=== PATIENT | male | born 1995 | race Caucasian/White ===

== ENCOUNTER 2018-06-19 18:06 | Observation (INO) ==
--- NOTE | 2018-06-19 18:17 | Emergency Department Note ---
Disposition Clinical Impression: Appendicitis Disposition: Admitted As Inpatient Condition: Fair General Adult HPI - General Chief complaint: ED Abdominal Pain Stated complaint: appy sent from [place] Time Seen by Provider: 06/19/18 18:09 - Related Data Home Medications Medication Instructions Recorded Confirmed Dextroamphetamine/Amphetamine 30 mg PO QAM 06/19/18 06/19/18 [Adderall Xr 30 mg Capsule] Allergies Allergy/AdvReac Type Severity Reaction Status Date / Time No Known Allergies Allergy Verified 06/19/18 18:22 Course Vital Signs Temperature 98.4 F 06/19/18 18:11 Pulse Rate 62 06/19/18 18:11 Respiratory Rate 16 06/19/18 18:11 Blood Pressure 142/91 06/19/18 18:11 O2 Sat by Pulse Oximetry 99 06/19/18 18:11 Temperature 98.4 F 06/19/18 18:11 Pulse Rate 62 06/19/18 18:11 Respiratory Rate 16 06/19/18 18:11 Blood Pressure 142/91 06/19/18 18:11 O2 Sat by Pulse Oximetry 99 06/19/18 18:11 Oxygen Delivery Oxygen Delivery Room Air Medical Decision Making - Lab Data Result diagrams: 06/19/18 19:00 06/19/18 19:00 Lab Results 06/19/18 06/19/18 06/19/18 Range/Units 19:00 19:00 19:00 WBC 13.1 H (4.3-11.1) K/mcL RBC 5.17 (4.19-5.50) M/mcL Hgb 15.2 (12.9-16.9) g/dL Hct 45.7 (37.5-50.1) % MCV 88.4 (83.0-100.0) fL MCH 29.4 (28.0-33.3) pg MCHC 33.3 (31.6-35.5) g/dL RDW 12.4 (11.5-14.5) % Plt Count 265 (140-400) K/mcL MPV 10.6 (9.4-12.4) fL Immature Gran % 0.3 (0-4) % Seg Neutrophils % 64.8 % Lymphocytes % 25.4 % Monocytes % 7.7 % Eosinophils % 1.5 % Basophils % 0.3 % Neutrophils # 8.5 (1.6-8.9) K/mcL Lymphocytes # 3.3 (0.6-4.6) K/mcL Monocytes # 1.0 (0.0-1.3) K/mcL Eosinophils # 0.2 (0.0-0.6) K/mcL Basophils # 0.0 (0.0-0.2) K/mcL PT 11.9 (9.4-12.1) Seconds INR 1.1 APTT 30.4 (26.0-36.0) Seconds Sodium 136 (136-145) mEq/L Potassium 4.2 (3.5-5.1) mEq/L Chloride 101 (98-107) mEq/L Carbon Dioxide 30 H (23-29) mEq/L BUN 10 (6-20) mg/dL Creatinine 0.91 (0.70-1.30) mg/dL Est GFR ( Amer) > 60 (> 60) Est GFR (Non-Af Amer) > 60 (> 60) BUN/Creatinine Ratio 11 (6-26) Glucose 91 (70-105) mg/dL Calculated Osmolality 281 (280-300) Calcium 9.2 (8.6-10.3) mg/dL Attestation Statement - Attestation Attestation: I examined this patient and my medical decision-making was reviewed with the Resident Physician. I agree with the documented findings, disposition and treatment plan as described except to the extent set forth below. Patient presents to the ED as she complaint of appendicitis. He [place] a transfer from the [place] where he had a CT scan that showed an appendicolith and dilated fluid-filled appendix. He said lower abdominal pain since this morning. Anorexia. He is in no distress sitting up in bed on examination. Right lower quadrant tenderness with guarding. Plan. Surgical consultation. White blood cell count was 15,000 at the [place]. Patient admitted to general surgery.
--- NOTE | 2018-06-19 18:46 | Emergency Department Note ---
Disposition Clinical Impression: Appendicitis Qualifiers: Appendicitis type: acute appendicitis Acute appendicitis type: unspecified acute appendicitis type Qualified Code(s): K35.80 - Unspecified acute appendicitis Disposition: Admitted As Inpatient Condition: Fair Time of Disposition: 19:37 General Adult HPI - General Chief complaint: ED Abdominal Pain Stated complaint: appy sent from OR Time Seen by Provider: 06/19/18 18:09 Source: EMS Mode of arrival: EMS Limitations: no limitations Nursing Notes Reviewed: Yes Vital Signs Reviewed: Yes - History of Present Illness HPI Narrative: Patient is a 23-year-old male with a past medical history of chronic back pain, ADHD presents to the emergency department for evaluation concerning for appendicitis. The patient was seen at the [facility] prior to transfer. There he had a CT scan of the abdomen and pelvis was concerning for appendicitis as well as a leukocytosis. The patient states that his symptoms started approximately 6:30 AM this morning about 12 hours ago. States he woke up and he had lower abdominal pain that he describes as 8/10 burning pain has been constant throughout the day. He is also had 3 episodes of nonbloody nonbilious emesis since onset of pain. Denies any fevers, chest pain, shortness of breath, back pain, diarrhea, urinary symptoms or testicular pain. Pain Scale: 9 - Related Data Home Medications Medication Instructions Recorded Confirmed Dextroamphetamine/Amphetamine 30 mg PO QAM 06/19/18 06/19/18 [Adderall Xr 30 mg Capsule] Allergies Allergy/AdvReac Type Severity Reaction Status Date / Time No Known Allergies Allergy Verified 06/19/18 18:22 All systems ED: reviewed and negative except as stated. Review of Systems: As Per HPI Constitutional: Denies: fever, chills Cardiovascular: Denies: chest pain, palpitations, dyspnea on exertion Respiratory: Denies: cough, dyspnea Gastrointestinal: Reports: abdominal pain, nausea, vomiting. Denies: diarrhea, constipation, hematemesis, melena, hematochezia Genitourinary: Denies: dysuria, testicular pain Musculoskeletal: Denies: back pain Past Medical History - Past Medical History Attestation: Yes The following information was validated with the patient. Source: patient Medical history: Reports: no medical history Psychiatric history: Reports: ADHD - Social History Smoking Status: Current every day smoker Smokeless Tobacco Status: No Alcohol use: Reports: none Drug use: Reports: none Physical Exam CONSTITUTIONAL: Alert and oriented X3, in no apparent distress at this time HEAD: Normocephalic; atraumatic. EYES: PERRL, no scleral icterus. NOSE: The nose is normal in appearance without rhinorrhea RESP: Normal chest excursion with respiration; breath sounds clear and equal bilaterally; no wheezes, rhonchi, or rales CARD: Regular rhythm, without murmurs, rub or gallop ABD: Non-distended; tender in the RLQ with guarding, no rebound, rigidity. SKIN: Normal for age and race; warm and dry; no apparent lesions - General General appearance: alert Course Course Narrative: Patient is a 23-year-old male with a CT scan concerning for appendicitis. The impression is transferred with the patient from the OR of the CT scan of the abdomen shows a suspected appendicolith and dilated fluid-filled appendix is highly concerning for appendicitis. On exam the patient does have guarding in the right lower quadrant with palpation. The patient was also found to have a leukocytosis in the 15,000 from lab work done at the OR. Plan at this time is to consult with general surgery for further management of the patient. - Reevaluation(s) Reevaluation #1: Patient seen and evaluated by general surgery with, Dr. Andrade. States that he will take the patient to surgery tonight to remove his appendix. Nothing by mouth until that time. Time: 19:37 Vital Signs Temperature 98.4 F 06/19/18 18:11 Pulse Rate 62 06/19/18 18:11 Respiratory Rate 16 06/19/18 18:11 Blood Pressure 142/91 06/19/18 18:11 O2 Sat by Pulse Oximetry 99 06/19/18 18:11 Temperature 98.4 F 06/19/18 18:11 Pulse Rate 56 06/19/18 20:22 Respiratory Rate 16 06/19/18 22:22 Blood Pressure 116/73 06/19/18 22:22 O2 Sat by Pulse Oximetry 100 06/19/18 20:22 Oxygen Delivery Oxygen Delivery Room Air Medical Decision Making - Medical Records Medical records reviewed: Yes I reviewed the patient's medical records. - Lab Data Lab results reviewed: Yes I reviewed the patient's lab results. Result diagrams: 06/19/18 19:00 06/19/18 19:00 Lab Results 06/19/18 06/19/1806/19/18 Range/Units 19:00 19:00 19:00 WBC 13.1 H (4.3-11.1) K/mcL RBC 5.17 (4.19-5.50) M/mcL Hgb 15.2 (12.9-16.9) g/dL Hct 45.7 (37.5-50.1) % MCV 88.4 (83.0-100.0) fL MCH 29.4 (28.0-33.3) pg MCHC 33.3 (31.6-35.5) g/dL RDW 12.4 (11.5-14.5) % Plt Count 265 (140-400) K/mcL MPV 10.6 (9.4-12.4) fL Immature Gran % 0.3 (0-4) % Seg Neutrophils % 64.8 % Lymphocytes % 25.4 % Monocytes % 7.7 % Eosinophils % 1.5 % Basophils % 0.3 % Neutrophils # 8.5 (1.6-8.9) K/mcL Lymphocytes # 3.3 (0.6-4.6) K/mcL Monocytes # 1.0 (0.0-1.3) K/mcL Eosinophils # 0.2 (0.0-0.6) K/mcL Basophils # 0.0 (0.0-0.2) K/mcL PT 11.9 (9.4-12.1) Seconds INR 1.1 APTT 30.4 (26.0-36.0) Seconds Sodium 136 (136-145) mEq/L Potassium 4.2 (3.5-5.1) mEq/L Chloride 101 (98-107) mEq/L Carbon Dioxide 30 H (23-29) mEq/L BUN 10 (6-20) mg/dL Creatinine 0.91 (0.70-1.30) mg/dL Est GFR ( Amer) > 60 (> 60) Est GFR (Non-Af Amer) > 60 (> 60) BUN/Creatinine Ratio 11 (6-26) Glucose 91 (70-105) mg/dL Calculated Osmolality 281 (280-300) Calcium 9.2 (8.6-10.3) mg/dL
[2018-06-19] MEDS ORDERED: *HR* FentaNYL (PF) 100 MCG/2 ML VIAL IVP ONE (18:49)
[2018-06-19] MEDS ORDERED: Ondansetron 4 MG/2 ML VIAL IVP ONE (18:49)
--- NOTE | 2018-06-19 19:24 | General Surg History&Physical ---
Date of Encounter: 06/19/18 Time of Encounter: 19:10 Assessment and Plan (1) Acute appendicitis Current Visit: Yes Status: Acute The assessment and plan as outlined above was discussed with the patient and/or family members who expressed understanding and agreement. All questions were answered. The patient with history consistent with appendicitis. Physical examination is suggestive of intra-abdominal inflammation but does not localized right lower quadrant. CAT scan correlation demonstrates the appendix is in the pelvis and appears to be acutely inflamed. The patient also has leukocytosis. I have recommended laparoscopic appendectomy. I discussed risks and benefits with the patient understands wishes to proceed. Qualifiers: Acute appendicitis type: with localized peritonitis Appendicitis gangrene presence: unspecified whether gangrene present Appendicitis perforation presence: unspecified whether perforation present Appendicitis abscess presence: without abscess Qualified Code(s): K35.30 - Acute appendicitis with localized peritonitis, without perforation or gangrene History of Present Illness Chief complaint: Abdominal pain HPI: Mr. Lopez is a 23 year old male Who had onset of abdominal pain this morning at 6 AM. The pain was midline and slightly to the right and suprapubic. He also had. Umbilical pain and nausea. He had no vomiting. No diarrhea. Throughout the day the pain persisted. He sought evaluation in the emergency department at the [place]. A noncontrast CAT scan was performed as well as multiple cell count evaluation. He had a significant leukocytosis as well as CAT scan evidence of acute appendicitis. He was transferred to [facility] for further care and evaluation. Patient was evaluated by emergency room staff. Surgery was consult. I evaluated the patient in the emergency department. I personally interpreted the CAT scan from the [place]. The patient has a pelvic cecum with what appears to be a dilated appendix. There is significant periappendiceal fluid but no evidence of abscess. The location of the appendix blunts the physical examination findings. I have recommended laparoscopic appendectomy Past Med Surg Social Fam HX - Past Medical History Medical history: no medical history Psychiatric history: ADHD - Social History Smoking Status: Current every day smoker Smokeless Tobacco Status: No Alcohol use: none Drug use: none Medications and Allergies Dextroamphetamine/Amphetamine [Adderall Xr 30 mg Capsule] 30 mg PO QAM 06/19/18 [History] Allergy/AdvReac Type Severity Reaction Status Date / Time No Known Allergies Allergy Verified 06/19/18 18:22 Review of Systems All systems PM: The remainder of the systems were reviewed and are negative General Surgery Exam Initial Vital Signs Temp Pulse Resp BP Pulse Ox 98.4 F 62 16 142/91 99 06/19/18 18:11 06/19/18 18:11 06/19/18 18:11 06/19/18 18:11 06/19/18 18:11 - General physical appearance well developed, well nourished, no distress - ENT normal pinna, normal nares, normal mucosa, no hearing loss, no congestion - Respiratory normal expansion, normal respiratory effort, clear to percussion, clear to auscultation - Cardiovascular Cardiovascular exam: Present: RRR, 15, 16 - Abdomen Abdomen general surgery: Present: bowel sounds present, guarding, rebound (The patient has suprapubic cardia and rebound there may be some localization of the right side but this is mostly suprapubic) Abdominal Tenderness: Present: suprapubic - Neurologic Present: CN 2-12 grossly intact, normal coordination, normal sensation - Psychiatric Psychiatric general surgery: Present: appropriate, oriented to person, oriented to place, oriented to time, speech is normal, memory intact Results - Labs All other labs normal. - Imaging CT scan - abdomen: image reviewed (I personally reviewed the CAT scan of the abdomen. The patient has a pelvic cecum with what appears to be dilated appendix and periappendiceal fluid. I cannot see a discrete abscess in the area. Findings are consistent with acute appendicitis)
[2018-06-19 19:30] LABS: Basophils % 0.3 %; Eosinophils # 0.2 K/mcL (0.0-0.6); Eosinophils % 1.5 %; Hematocrit 45.7 % (37.5-50.1); Hemoglobin 15.2 g/dL (12.9-16.9); Immature Granulocytes % 0.3 % (0-4); Lymphocytes # 3.3 K/mcL (0.6-4.6); Lymphocytes % 25.4 %; Mean Corpuscular HGB Conc 33.3 g/dL (31.6-35.5); Mean Corpuscular Hemoglobin 29.4 pg (28.0-33.3); Mean Corpuscular Volume 88.4 fL (83.0-100.0); Mean Platelet Volume 10.6 fL (9.4-12.4); Monocytes % 7.7 %; Neutrophils # 8.5 K/mcL (1.6-8.9); Platelet Count 265 K/mcL (140-400); Red Blood Count 5.17 M/mcL (4.19-5.50); Red Cell Distribution Width 12.4 % (11.5-14.5); Segmented Neutrophils % 64.8 %
[2018-06-19 19:35] LABS: BUN/Creatinine Ratio 11 (6-26); Blood Urea Nitrogen 10 mg/dL (6-20); Calcium 9.2 mg/dL (8.6-10.3); Carbon Dioxide 30 mEq/L (23-29); Chloride 101 mEq/L (98-107); Glucose 91 mg/dL (70-105); Osmolality,Calculated 281 (280-300); Potassium 4.2 mEq/L (3.5-5.1); Sodium 136 mEq/L (136-145); eGFR For Non-African Americans > 60 (> 60)
[2018-06-19 19:37] LABS: INR 1.1; Prothrombin Time 11.9 Seconds (9.4-12.1)
[2018-06-19 19:40] LABS: Activated Partial Thrombo Time 30.4 Seconds (26.0-36.0)
[2018-06-19] MEDS ORDERED: Famotidine 20 MG/2 ML VIAL IVP ONE (22:15)
[2018-06-19] MEDS ORDERED: Acetaminophen IV 1,000 MG/100 ML INFUS..BTL IVPB ONE (22:16)
[2018-06-19] MEDS ORDERED: Famotidine 20 MG/2 ML VIAL ONE (22:53)
[2018-06-19] MEDS ORDERED: Ringers Solution, Lactated 1,000 ML ONE (23:02)
[2018-06-19] MEDS ORDERED: CefOXitin 1,000 MG VIAL ONE (23:19)
[2018-06-19] MEDS: Albuterol 2.5 MG/3 ML NEBULIZER IH ONE ×2 (23:22→23:30)
[2018-06-19] MEDS ORDERED: cefOXitin 2,000 MG in Water for inj. (sterile) 20 ML 20 ML IVP ONE (23:28)
--- NOTE | 2018-06-19 23:32 | Anesthesia Evaluation PreOp ---
Date of Encounter: 06/19/18 Time of Encounter: 23:30 - Past History Planned Operation: Lap Appy Cardiac History: Denies any Significant Hx Pulmonary History: Smoker OUTLET MANAGER History: Denies Any Significant HX Other Medical History: Other (ADHD) Anesthesia History: No Prior Anesthetic Complications Alcohol Use: none Drug use: none Medications and Allergies Dextroamphetamine/Amphetamine [Adderall Xr 30 mg Capsule] 30 mg PO QAM 06/19/18 [History] Allergy/AdvReac Type Severity Reaction Status Date / Time No Known Allergies Allergy Verified 06/19/18 18:22 - Meds/Allergy Pre-op Review Medications Reviewed: Yes Allergies Reviewed: Yes Beta Blockers on Current Med List: No Anesthesia Results - Labs 06/19/18 19:00 06/19/18 19:00 Anesthesia Exam O2 Sat Height 1.83 m Weight 87.09 kg O2 Sat by Pulse Oximetry 100 O2 Sat by Pulse Oximetry 99 Vital Signs Temp Pulse Resp BP Pulse Ox 98.4 F 62 16 142/91 99 06/19/18 18:11 06/19/18 18:11 06/19/18 18:11 06/19/18 18:11 06/19/18 18:11 Height: 6'0 Weight: 192 lbs NPO (# of Hours): MN Pain Scale: 1 - HEENT Pupil (Motor): Pupils equal, EOMI Mallampati: II Teeth: Normal Oral Opening: Greater than 3 - OUTLET MANAGER LOC: Oriented OUTLET MANAGER Motor: Normal RUE, Normal LUE, Normal RLE, Normal LLE, Normal Face OUTLET MANAGER Sensory: Normal: RUE, LUE, RLE, LLE, Face - Cardiac Rhythm: Regular Murmur: None JVD: No Carotid Bruit: No - Pulmonary Breath Sounds: bilateral Clear Respiratory Effort: Symmetrical Anesthesia Assess/Plan ASA Score: 2, E Modified Jf Scale for Level of Consciousness: Cooperative, oriented, and tranquil Anesthetic Plan: General Monitoring Plan: Standard Monitors Recovery Plan: PACU (Discussed GA, agrees to proceed)
[2018-06-19] MEDS ORDERED: *HR* FentaNYL (PF) 100 MCG/2 ML VIAL ONE ×2 (23:36→23:37)
[2018-06-19] MEDS ORDERED: *HR* Propofol 200 MG/20 ML VIAL IVP ONE (23:36)
[2018-06-19] MEDS ORDERED: Lidocaine -MPF 2% 2 ML VIAL ONE (23:37)
[2018-06-19] MEDS ORDERED: Ondansetron 4 MG/2 ML VIAL ONE (23:37)
[2018-06-19] MEDS ORDERED: Dexamethasone 4 MG/ML VIAL ONE (23:37)
[2018-06-19] MEDS ORDERED: CefOXitin 2,000 MG VIAL ONE (23:58)
[2018-06-20] MEDS ORDERED: *HR* FentaNYL (PF) 100 MCG/2 ML VIAL ONE (00:11)
[2018-06-20] MEDS ORDERED: Neostigmine Methylsulfate 3 MG/3 ML SYRINGE ONE ×2 (00:24→00:38)
[2018-06-20] MEDS ORDERED: Ketorolac 30 MG/ML VIAL ONE (00:25)
[2018-06-20] MEDS ORDERED: *HR* Morphine 10 MG/ML VIAL ONE (00:33)
--- NOTE | 2018-06-20 00:45 | Operative Note ---
Date of procedure: 06/20/18 Pre-op diagnosis: Acute appendicitis Post-op diagnosis: same Procedure: Laparoscopic appendectomy Anesthesia: RUSTY Surgeon: Alexei Andrade Was there an timber management assistant present: No Estimated blood loss (cc): 10 Specimen: Appendix Condition: stable Disposition: PACU Procedure in Detail: After informed consent the patient was taken to the major operating suite placed in the supine position given adequate general endotracheal anesthesia. The abdomen is prepped and draped in sterile fashion utilizing ChloraPrep and standard draping techniques. Timeout was taken and the patient is identified. Made a vertical midline incision below the umbilicus and dissected fashion. Fascia was secured with 2 stitches of 0 Vicryl. I placed a Mancia trocar in the abdomen visually. The abdomen was insufflated to 15 mmHg pressure CO2. The cecum was in the pelvis. I placed a 5 mm trocar in the left lower quadrant. I divided the adhesions between right colon and the anterior abdominal wall. The cecum was mobilized out of the pelvis. The appendix was dilated and acutely inflamed but there is no visible pus. The appendix was not perforated. The appendix was divided off the base the cecum with a gastrointestinal load on the JAYLEEN stapler. The mesial appendix had a fairly large artery. This was secured based to 10 mm clips and a vascular load on the laparoscopic stapler. This gave an excellent technical result. The appendix was recovered through the umbilical port site in a specimen bag. I replaced the port and irrigated with copious amounts of antibiotic containing solution. There is no evidence of bleeding. All staple lines were intact. All trochars were removed. Fascia was closed with 0 Vicryl. The skin was closed with 2-0 Vicryl subcutaneous layer and 4-0 Vicryl on the subcuticular layer. He tolerated the procedure well. The appendix is sent for pathologic evaluation
--- NOTE | 2018-06-20 01:22 | Anesthesia Evaluation Post Op ---
Date of Encounter: 06/20/18 Time of Encounter: 01:20 - Vital Signs Vital Signs: Vital Signs/O2 Sat/Glucose, Most Current Temp Pulse Resp BP Pulse Ox 06/20/18 01:15 98.6 F 50 20 141/83 93 06/20/18 01:05 48 20 144/85 95 06/20/18 00:55 50 20 128/70 93 06/20/18 00:45 97.8 F 67 16 125/74 99 06/19/18 22:22 16 116/73 - Lungs Lungs: Clear Ascult./Percussion - Airway Airway: Non-obstructed - Cardiovascular Regular Rate - Mental Status Mental Status: Alert & Oriented, Answers Appropriately - Pain Pain Scale: 0 - Nausea Vomiting Nausea Vomiting: Not Present - Hydration Hydration: Ice chips - Discharge PostOp Status: Transfer Patient to floor
[2018-06-20] MEDS ORDERED: *HR* OxyCODONE/APAP 5/325 TABLET PO PRN (01:47)
[2018-06-20] MEDS ORDERED: Ondansetron 4 MG/2 ML VIAL IVP PRN (01:47)
[2018-06-20] MEDS ORDERED: 0.9 % Sodium Chloride 1,000 ML IVC SCH (01:47)
[2018-06-20] MEDS ORDERED: 0.9 % Sodium Chloride 1,000 ML ONE (01:53)
[2018-06-20] MEDS: OXYCODONE Oral CONC 10 MG/0.5 ML ORAL.SYG SL PRN ×3 (03:40→13:39)
[2018-06-20] MEDS ORDERED: cefOXitin 2,000 MG in Water for inj. (sterile) 20 ML 20 ML IVP SCH (08:00)
[2018-06-20] MEDS ORDERED: ADDERALL 30 MG PO SCH (09:00)
[2018-06-20 10:42] VITALS: BP 114/68
--- NOTE | 2018-06-20 12:03 | Discharge Summary ---
<LucianoFelix Drummond - Last Filed: 06/20/18 16:42> - NOTES TO OUTPATIENT PROVIDER Notes to Outpatient Provider: Patient had laparoscopic appendectomy with no complications on 06/19 (midnight). Sent home on percocet and colace 06/20. Orders not resulted at time of discharge: Pending orders 06/20/18 00:21 Surgical Pathology [PTH] Routine Date of Encounter: 06/20/18 Time of Encounter: 08:00 - Discharge Diagnosis (1) Acute appendicitis Priority: Primary Status: Acute Qualifiers: Acute appendicitis type: with localized peritonitis Appendicitis gangrene presence: unspecified whether gangrene present Appendicitis perforation presence: unspecified whether perforation present Appendicitis abscess presence: without abscess Qualified Code(s): K35.30 - Acute appendicitis with localized peritonitis, without perforation or gangrene General Surgery Exam Initial Vital Signs Temp Pulse Resp BP Pulse Ox 98.4 F 62 16 142/91 99 06/19/18 18:11 06/19/18 18:11 06/19/18 18:11 06/19/18 18:11 06/19/18 18:11 - General physical appearance well developed, well nourished, no distress - Respiratory normal expansion, normal respiratory effort - Cardiovascular Cardiovascular exam: Present: RRR - Abdomen Abdomen general surgery: Present: bowel sounds present, soft, tender (appropriately), surgical scars - Incision Incision: Present: clean and dry, intact - Integumentary Integumentary general surgery: Present: warm and dry, no abnormal pigmentation - Psychiatric Psychiatric general surgery: Present: A&Ox3, appropriate - Hospital Course Hospital course: Mr. Lopez is a 23 year old male who presented to [place] from the [place] on 06/19 with complaints of RLQ abdominal pain. At the [place], patient complained of RLQ abdominal pain that started earlier that day. He had a leukocytosis of 14.9. CT abdomen/pelvis was concerning for appendicitis. Patient was transferred to [place] for acute appendicitis and surgical consult. Patient had a laparoscopic appendectomy by Dr. Andrade with no complications on 06/19. Patient was able to tolerate a regular diet the next day and his pain was well controlled. He was discharged with prescriptions for colace and percocet, and an appointment was made for follow-up with Lissa Hogan on 06/29/18. - Time Spent with Patient Total time spent providing and/or coordinating discharge services: Less than 30 minutes - Discharge Medications Prescriptions: RX: OxyCODONE/APAP 5/325 [Percocet 5/325 MG] 1 each PO Q6HR PRN 7 Days #20 tablet PRN Reason: Pain (1-5) Docusate Sodium [Colace] 100 mg PO BID #20 capsule Home Medications: RX: Dextroamphetamine/Amphetamine [Adderall Xr 30 mg Capsule] 30 mg PO QAM 06/19/18 [History] Docusate Sodium [Colace] 100 mg PO BID #20 capsule 06/20/18 [Rx] RX: OxyCODONE/APAP 5/325 [Percocet 5/325 MG] 1 each PO Q6HR PRN 7 Days #20 tablet 06/20/18 [Rx] Allergies/Adverse Reactions: Allergy/AdvReac Type Severity Reaction Status Date / Time No Known Allergies Allergy Verified 06/19/18 18:22 Date of admission: 06/19/18 19:45 Primary care physician: [facility] Consults: 06/19/18 18:57 Consult to Surgery [CONS] Stat Consulting Provider: Alexei Andrade Reason for Consult: Appendicitis Time Notified: 18:57 Call Completed: Yes Discharging clinician: Felix Wolf Anticipated date of discharge: 06/20/18 Labs on day of discharge: Labs from last 24 hours 06/19/18 06/19/18 06/19/18 19:00 19:00 19:00 WBC 13.1 H RBC 5.17 Hgb 15.2 Hct 45.7 MCV 88.4 MCH 29.4 MCHC 33.3 RDW 12.4 Plt Count 265 MPV 10.6 Immature Gran % 0.3 Seg Neutrophils % 64.8 Lymphocytes % 25.4 Monocytes % 7.7 Eosinophils % 1.5 Basophils % 0.3 Neutrophils # 8.5 Lymphocytes # 3.3 Monocytes # 1.0 Eosinophils # 0.2 Basophils # 0.0 PT 11.9 INR 1.1 APTT 30.4 Sodium 136 Potassium 4.2 Chloride 101 Carbon Dioxide 30 H BUN 10 Creatinine 0.91 Est GFR ( Amer) > 60 Est GFR (Non-Af Amer) > 60 BUN/Creatinine Ratio 11 Glucose 91 Calculated Osmolality 281 Calcium 9.2 - Patient Status Disposition: Home, Self-Care Condition: Fair Overall status at discharge: patient is progressing back to baseline - Discharge Instructions Instructions: Appendicitis (DC) Follow Up With: Lissa Hogan [facility] [Advanced Practice Nurse] - 06/29/18 8:45 am - Diet and Activity Activity: increase activity as tolerated <Alexei Andrade - Last Filed: 06/22/18 13:22> Date of Encounter: 06/20/18 - Discharge Diagnosis (1) Acute appendicitis Status: Acute Qualifiers: Acute appendicitis type: with localized peritonitis Appendicitis gangrene presence: unspecified whether gangrene present Appendicitis perforation presence: unspecified whether perforation present Appendicitis abscess presence: without abscess Qualified Code(s): K35.30 - Acute appendicitis with localized peritonitis, without perforation or gangrene General Surgery Exam Initial Vital Signs Temp Pulse Resp BP Pulse Ox 98.4 F 62 16 142/91 99 06/19/18 18:11 06/19/18 18:11 06/19/18 18:11 06/19/18 18:11 06/19/18 18:11 - Hospital Course Hospital course: Mr. Lopez is a 23 year old male - Time Spent with Patient Total time spent providing and/or coordinating discharge services: Date of admission: 06/19/18 19:45 Primary care physician: [facility] Consults: 06/19/18 18:57 Consult to Surgery [CONS] Stat Consulting Provider: Alexei Andrade Reason for Consult: Appendicitis Time Notified: 18:57 Call Completed: Yes - Attending Attestation I examined this patient and my medical decision-making was reviewed with the Resident Physician. I agree with the documented findings, disposition and treatment plan as described except to the extent set forth below. The patient is seen and evaluated with resident. He underwent appendectomy which was uncomplicated and without perforation. He is ready for discharge. Follow-up in one week. Alexei Andrade MD FACS
== END 2018-06-20 14:41 | disposition home or self-care (01) ==
LOC: 3ANU 18:06 → EMEROOARM 18:06 → 3ANU 22:23
PROVIDERS: ADMIT Surgery; ATTEND Surgery